=== PATIENT | female | born 1980 | race Native Hawaiian/Other Pacific Islander ===

== ENCOUNTER 2022-12-23 23:32 | Emergency (ER) | payer OTHER ==
[~2022-12-23] VITALS: Ht 167.6 cm; Wt 118.2 kg
[~2022-12-23 23:32] MED LIST: ASPIRIN 81M81 MG/TA2 PO; AZO URINARY PAI95 MG; FREESTYLE PREC1 EAC5 MC; GLUCOPHAGE500 MG/TAB PO; GLUCOSE TEST ST1 DEV MC; LANCETS MC; LIPITOR 80MG80 MG PO; NITROSTAT0.4 MG/TAB SL; PLAVIX 75MG TAB75 MG PO; TOPROL XL 25MG25 MG PO; TYLENOL 325MG325 MG
[2022-12-23 23:37] VITALS: TEMP 98.7
[2022-12-24 00:10] LABS: BASO % 0.4 % (0.0-2.0); EOS # 0.1 K/mm3 (0.0-0.7); EOS % 0.7 % (0.0-4.0); GRAN % 82.3 % (42.2-75.2); HEMATOCRIT 38.7 % (37.0-47.0); HEMOGLOBIN 12.2 g/dl (12.5-16.0); LYMPH # 1.5 K/mm3 (1.2-3.4); LYMPH % 13.8 % (20.0-51.0); MEAN CELL VOLUME 77 fl (80.0-100.0); MEAN CORPUSCULAR HEMOGLOBIN 24 pg (27-31); MEAN CORPUSCULAR HGB CONC 32 g/dl (33.0-37.0); MEAN PLATELET VOLUME 9.4 fl (7.4-10.4); MONO # 0.3 K/mm3 (0.1-0.6); MONO % 2.6 % (1.7-9.3); PLATELET COUNT 317 K/mm3 (130-400); RED BLOOD COUNT 5.05 M/mm3 (4.10-5.30); REDCELL DISTRIBUTION WIDTH-CV 14.3 % (11.5-14.5)
[2022-12-24 00:26] LABS: ALBUMIN 3.6 gm/dL (3.5-5.0); BILIRUBIN,TOTAL 0.3 mg/dL (0.2-1.2); CALCIUM 9.8 mg/dL (8.4-10.2); CREATININE, serum 0.72 mg/dL (0.57-1.11); POTASSIUM 3.6 mmol/L (3.5-4.5); TOTAL PROTEIN 7.8 gm/dL (6.2-8.1)
[2022-12-24 00:31] LABS: TROPONIN-I 0.012 ng/mL (0.00-0.033)
[2022-12-24 04:31] VITALS: BP 146/84; PULSE 98
== END 2022-12-24 04:31 | disposition home or self-care (01) ==
LOC: COL.ER 23:32
PROVIDERS: Emergency Medicine
DX: R07.89 Other chest pain (principal); I10 Essential (primary) hypertension; E66.9 Obesity, unspecified; D72.829 Elevated white blood cell count, unspecified; D64.9 Anemia, unspecified; Z68.41 Body mass index [BMI] 40.0-44.9, adult
CPT/HCPCS: J2405

== ENCOUNTER 2023-11-30 16:56 | Emergency (ER) | payer SELFPAY ==
[~2023-11-30] VITALS: Ht 162.6 cm; Wt 118.2 kg
[2023-11-30 17:00] VITALS: TEMP 97.7
[2023-11-30 17:55] LABS: BASO % 0.3 % (0.0-2.0); EOS # 0.1 K/mm3 (0.0-0.7); EOS % 1.3 % (0.0-4.0); GRAN # 6.9 K/mm3 (1.4-6.5); GRAN % 68.4 % (42.2-75.2); HEMATOCRIT 40.8 % (37.0-47.0); HEMOGLOBIN 12.5 g/dl (12.5-16.0); LYMPH # 2.6 K/mm3 (1.2-3.4); LYMPH % 25.5 % (20.0-51.0); MEAN CELL VOLUME 80 fl (80.0-100.0); MEAN CORPUSCULAR HEMOGLOBIN 24 pg (27-31); MEAN CORPUSCULAR HGB CONC 31 g/dl (33.0-37.0); MEAN PLATELET VOLUME 9.7 fl (7.4-10.4); MONO # 0.4 K/mm3 (0.1-0.6); MONO % 4.2 % (1.7-9.3); PLATELET COUNT 308 K/mm3 (130-400); RED BLOOD COUNT 5.12 M/mm3 (4.10-5.30)
[2023-11-30 18:06] LABS: ALBUMIN 3.6 gm/dL (3.5-5.0); BILIRUBIN,TOTAL 0.3 mg/dL (0.2-1.2); C-REACTIVE PROTEIN 2.02 mg/dL (0.00-0.50); CALCIUM 9.5 mg/dL (8.4-10.2); CREATININE, serum 0.75 mg/dL (0.57-1.11); POTASSIUM 3.9 mmol/L (3.5-4.5); TOTAL PROTEIN 7.8 gm/dL (6.2-8.1)
[2023-11-30 18:35] LABS: COLLECTION METHOD CLEAN CATCH
[2023-11-30 18:48] LABS: URINE APPEARANCE Cloudy (CLEAR/HAZY); URINE COLOR Yellow (YELLOW); URINE GLUCOSE 3+ (NEGATIVE); URINE KETONE 1+ (NEGATIVE); URINE PROTEIN(semi-quant) Negative (NEGATIVE); URINE UROBILINOGEN 0.2 E.U/dL (0.2-1.0)
[2023-11-30 18:49] LABS: BUDDING YEAST Present (NOT PRESENT); URINE BACTERIA Many /hpf (NONE SEEN); URINE BLOOD Negative (NEGATIVE); URINE NITRATE Positive (NEGATIVE); URINE RBC 0-2 /hpf (0-2)
[2023-11-30] MEDS ORDERED: DIFLUCAN150 MG PO (20:11)
[2023-11-30] MEDS ORDERED: NORCO 325 MG-51 TAB PO (20:11)
[2023-11-30] MEDS ORDERED: CEFTIN 250250 MG/TAB PO (20:11)
[2023-11-30 20:13] VITALS: BP 176/121; PULSE 98
== END 2023-11-30 20:31 | disposition home or self-care (01) ==
LOC: COL.ER 16:56
PROVIDERS: Nurse Practitioner
DX: B37.41 Candidal cystitis and urethritis (principal)
CPT/HCPCS: J2270; J2405; J7030; Q9967

== ENCOUNTER 2024-07-04 16:54 | Emergency (ER) | payer SELFPAY ==
[~2024-07-04] VITALS: Ht 167.6 cm; Wt 118.2 kg
[~2024-07-04 16:54] MED LIST changes: +CEFTIN 250250 MG/TAB PO; +DIFLUCAN150 MG PO; +NORCO 325 MG-51 TAB PO
[2024-07-04 17:00] VITALS: TEMP 98.6
[2024-07-04] MEDS ORDERED: Ondansetron 4 MG/2 ML VIAL IV ONE (17:45)
[2024-07-04] MEDS ORDERED: NS 1,000 ML IV ONE ×2 (17:45→18:45)
[2024-07-04 17:48] LABS: BASO # 0.1 K/mm3 (0.0-0.2); BASO % 0.6 % (0.0-2.0); EOS # 0.2 K/mm3 (0.0-0.7); EOS % 1.2 % (0.0-4.0); GRAN # 9.9 K/mm3 (1.4-6.5); GRAN % 78.1 % (42.2-75.2); HEMATOCRIT 41.1 % (37.0-47.0); HEMOGLOBIN 13.2 g/dl (12.5-16.0); LYMPH # 2.1 K/mm3 (1.2-3.4); LYMPH % 16.4 % (20.0-51.0); MEAN CELL VOLUME 80 fl (80.0-100.0); MEAN CORPUSCULAR HEMOGLOBIN 26 pg (27-31); MEAN CORPUSCULAR HGB CONC 32 g/dl (33.0-37.0); MEAN PLATELET VOLUME 9.5 fl (7.4-10.4); MONO # 0.5 K/mm3 (0.1-0.6); MONO % 3.5 % (1.7-9.3); PLATELET COUNT 341 K/mm3 (130-400); RED BLOOD COUNT 5.13 M/mm3 (4.10-5.30); REDCELL DISTRIBUTION WIDTH-CV 13.5 % (11.5-14.5)
[2024-07-04 18:09] LABS: ALBUMIN 3.5 g/dL (3.5-5.0); BILIRUBIN,TOTAL 0.2 mg/dL (0.2-1.2); CREATININE, serum 1.07 mg/dL (0.57-1.11); POTASSIUM 3.9 mEq/L (3.5-4.5)
[2024-07-04] MEDS ORDERED: Insulin Regular Human (NovoLIN R/HumuLIN R) IV ONE ×2 (18:30→20:45)
[2024-07-04 18:37] LABS: COLLECTION METHOD CLEAN CATCH
[2024-07-04 18:45] LABS: PH 5.5 (5.0-8.5); URINE APPEARANCE CLOUDY (CLEAR/HAZY); URINE BLOOD 1+ (NEGATIVE); URINE COLOR YELLOW (YELLOW); URINE GLUCOSE 3+ (NEGATIVE); URINE KETONE TRACE (NEGATIVE); URINE NITRATE POSITIVE (NEGATIVE); URINE PROTEIN(semi-quant) 2+ (NEGATIVE); URINE UROBILINOGEN 0.2 E.U/dL (0.2-1.0)
[2024-07-04] MEDS ORDERED: Ketorolac 30 MG/ML VIAL IV ONE (19:00)
[2024-07-04] MEDS ORDERED: Iohexol 300 - 100 ML VIAL IV ONE (20:10)
[2024-07-04] MEDS ORDERED: NS 50 ML IV ONE (20:12)
[2024-07-04] MEDS ORDERED: cefTRIAXone 1 G in Water For Injection,Sterile 10 ML IV ONE (21:00)
[2024-07-04] MEDS ORDERED: CEFTIN500 MG PO (23:19)
[2024-07-04 23:26] VITALS: BP 188/98; PULSE 94
== END 2024-07-04 23:38 | disposition home or self-care (01) ==
LOC: COL.ER 16:54
PROVIDERS: Nurse Practitioner Primary Care
DX: E11.65 Type 2 diabetes mellitus with hyperglycemia (principal); N39.0 Urinary tract infection, site not specified; T38.3X6A Underdosing of insulin and oral hypoglycemic [antidiabetic] drugs, initial encounter; Z91.128 Patient's intentional underdosing of medication regimen for other reason; Z87.442 Personal history of urinary calculi
CPT/HCPCS: J0696; J1815; J1885; J2405; J7030; Q9967

== ENCOUNTER 2024-09-14 16:50 | Emergency (ER) | payer SELFPAY ==
[~2024-09-14] VITALS: Ht 165.1 cm; Wt 118.2 kg
[~2024-09-14 16:50] MED LIST changes: +CEFTIN500 MG PO
[2024-09-14 16:57] VITALS: TEMP 98.2
[2024-09-14] MEDS ORDERED: traMADol 50 MG TAB PO ONE (17:15)
[2024-09-14] MEDS ORDERED: Ketorolac 60 MG/2 ML VIAL IM ONE (17:15)
[2024-09-14] MEDS ORDERED: Acetaminophen 500 MG TAB PO ONE (17:15)
[2024-09-14] MEDS ORDERED: Cyclobenzaprine 10 MG TAB PO ONE (17:15)
[2024-09-14] MEDS ORDERED: FLEXERIL 1010 MG/TAB PO (18:06)
[2024-09-14] MEDS ORDERED: MOBIC 7.5MG7.5 MG PO (18:06)
[2024-09-14 18:43] VITALS: BP 187/111; PULSE 77
== END 2024-09-14 18:43 | disposition home or self-care (01) ==
LOC: COL.ER 16:50
DX: M54.42 Lumbago with sciatica, left side (principal)
CPT/HCPCS: J1885